=== PATIENT | male | born 1960 | race Hispanic/Latino ===

== ENCOUNTER 2024-03-22 10:19 | Emergency (ER) | payer MEDICAID ==
[~2024-03-22] VITALS: Ht 185.4 cm; Wt 70.8 kg
--- NOTE | 2024-03-22 10:49 | ERN ---
ED Note History of Present Illness Stated Complaint: HEADACHE Chief Complaint: Headache Time Seen by MD: 10:48 Dictation: Patient is a 63-year-old male with a past medical history of hypertension, diabetes type 2, epilepsy who presents to the ED for headache. Patient states his headache started yesterday morning upon wakening. Patient denies any injuries or falls. Patient denies any chest pain, vomiting, or dizziness. Patient admits cough, shortness of breath, congestion, runny nose, fevers, chills, weakness, nausea, generalized weakness. Review of System Dictation Constitutional-no chills, weight loss/gain, fever. Positive for fever, chills. Eyes-no injury, pain, redness and discharge ENT-no injury, pain, swelling. Runny nose, congestion Cardiovascular no chest pain, palpitations, edema Respiratory no wheezing. Positive for shortness of breath and cough Abdomen/GI-no abdominal pain, diarrhea, constipation, vomiting. Positive for nausea Back no injury and pain Genitourinary no injury, bleeding and discharge Musculoskeletal/extremities no injury, deformity. Ambulates with cane. Skin no rash, discoloration Neuro-no numbness, tingling, tremors. Positive for tension headache, generalized weakness. Hx of epileptic seizures. Psych-no suicidal ideation, homicidal ideation, hallucinations, depression, anxiety, memory loss Initial Vital Sign VS Vital Signs Date Time Temp Pulse Resp B/P (MAP) Pulse Ox O2 Delivery O2 Flow Rate FiO2 03/22/24 11:47 98.2 60 20 176/85 100 Room Air 0 03/22/24 12:47 21 Physical Exam Dictation VITAL SIGNS: Reviewed. GENERAL APPEARANCE: Alert, oriented x3, no acute distress, obese. HEAD AND FACE: Non-traumatic. EYES: PERRL, pink conjunctivas, eyelid no trauma, anterior chamber clear. EARS: Pinnas intact and no signs of trauma or erythema. Ear canals clear and no discharge. TMs no erythema. NOSE: No discharge, no bleeding. OROPHARYNX: Mouth normal, teeth no caries, tongue pink. Pharynx clear, no erythema. Tonsils no exudates, no abscesses noted. Mucous membrane moist. NECK: Supple, non-tender, no thyromegaly, no masses, no JVD, no bruits. BREAST: Deferred. CHEST: No tenderness, no crepitus, no paradoxical movement, no retractions. LUNGS: Clear, well-ventilated, symmetric, no rales, no wheezing, no rhonchi, no stridor, good breath sounds bilaterally. HEART: Regular rate, regular rhythm, no murmur, no gallops. VASCULAR: No peripheral edema. ABDOMEN: Soft, positive bowel sounds, nondistended, no guarding, nontender, no rebound, no masses no hepatomegaly, no splenomegaly, no Lopez's sign, no hernias. RECTAL: Deferred. GENITAL: Deferred. NEUROLOGICAL: Normal speech, gross motor function intact, gross sensory function intact. MUSCULOSKELETAL: Neck nontender, full range of motion, back nontender, full range of motion. EXTREMITIES: Nontender, full range of motion. SKIN: Color pink, dry, no turgor, no rash, no lacerations, no abrasions, no contusions. LYMPHATICS: Deferred. Results (Laboratory/Radiology) Laboratory/Radiology Laboratory Tests Test 03/22/24 11:33 03/22/24 11:53 03/22/24 14:20 White Blood Count 7.4 K/uL (4.8-10.8) Red Blood Count 3.52 MIL/uL (4.50-6.20) L Hemoglobin 10.1 g/dL (14.0-18.0) L Hematocrit 31.6 % (42-54) L Mean Corpuscular Volume 89.8 fL (79-99) Mean Corpuscular Hemoglobin 28.7 pg (27.0-33.0) Mean Corpuscular Hemoglobin Concent 32.0 g/dL (32.0-36.0) Red Cell Distribution Width 15.4 % (11.0-15.5) Platelet Count 149 K/uL (130-400) Mean Platelet Volume 13.4 fL (7.5-10.5) H Immature Granulocyte % (Auto) 0.1 % (0-1) Neutrophils (%) (Auto) 83.4 % (40.0-77.0) H Lymphocytes (%) (Auto) 8.0 % (21.0-51.0) L Monocytes (%) (Auto) 7.2 % (3.0-13.0) Eosinophils (%) (Auto) 0.9 % (0.0-8.0) Basophils (%) (Auto) 0.4 % (0.0-5.0) Neutrophils # (Auto) 6.2 K/uL (1.8-7.7) Lymphocytes # (Auto) 0.6 K/uL (1.0-4.8) L Monocytes # (Auto) 0.5 K/uL (0.1-1.0) Eosinophils # (Auto) 0.07 K/uL (0.00-0.70) Basophils # (Auto) 0.03 K/uL (0.00-0.20) Absolute Immature Granulocyte (auto 0.01 K/uL (0-1) Nucleated Red Blood Cells 0.0 % (0.0-0.19) White Cell Morphology Comment See comments Sodium Level 137 mmol/L (136-145) Potassium Level 3.5 mmol/L (3.5-5.1) Chloride Level 104 mmol/L (101-111) Carbon Dioxide Level 29 mmol/L (21-32) Blood Urea Nitrogen 21 mg/dL (7-18) H Creatinine 1.2 mg/dL (0.5-1.3) Glomerular Filtration Rate Calc 68 mL/min (>90) Random Glucose 106 mg/dL (70-105) H Total Calcium 9.6 mg/dL (8.5-10.1) Magnesium Level 1.80 mg/dL (1.80-2.40) Troponin I High Sensitivity 20 ng/L (4-75) Influenza Type A Antigen Negative For Type A Influenza Type B Antigen Negative For Type B SARS-CoV-2 Antigen (Rapid) PRESUMPTIVE NEGATIVE Urine Color LIGHT-YELLOW (YELLOW) Urine Appearance CLEAR (CLEAR) Urine pH 6.5 (5.0-8.0) Urine Specific Horton 1.016 (1.001-1.031) Urine Protein NEGATIVE mg/dL (NEGATIVE) Urine Glucose (UA) NEGATIVE mg/dL (NEGATIVE) Urine Ketones NEGATIVE mg/dL (NEGATIVE) Urine Occult Blood NEGATIVE (NEGATIVE) Urine Nitrate NEGATIVE (NEGATIVE) Urine Bilirubin NEGATIVE mg/dL (NEGATIVE) Urine Urobilinogen 0.2 mg/dL (0.2-1.0) Urine Leukocyte Esterase NEGATIVE Kayy/uL Urine RBC 2-5 /HPF (0-1) H Urine WBC 0-1 /HPF (0-1) Urine Squamous Epithelial Cells RARE /HPF (0-2) Urine Other Crystals (Auto) 1 /HPF (None Seen) Urine Bacteria None /HPF (None Seen) Labs Reviewed?: Yes EKG Comment: EKG obtained 03/22/24 at 11:26:17 Sinus rhythm HR [address] Depressions/elevations X-RAY Comment: Exam Type: CHEST 1VW Clinical Information: SOB Comparison: None Findings: There is apical capping on the left side, significantly asymmetric when compared to the right and there is destruction of the proximal aspect of the left second rib. These findings are suggestive of a Pancoast tumor. Consider further evaluation with CT of the chest without contrast. The rest of the lung mckeon are clear and the heart is normal in size. IMPRESSION: Suspected left apical tumor. Consider CT. CT Scan Comment: Exam Type: CT HEAD/BRAIN W/O CONTRAST Clinical Information: Headache, hx of epilepsy Comparison: None CT Dose Index (CTDI): 57.33 mGy Dose Length Product (DLP): 956.79 total mGy-cm Findings: The examination shows atrophy. There is low attenuation throughout the periventricular white matter locations, consistent with chronic small vessel ischemic changes. No acute intra- or extra-axial fluid collections are seen. There is no evidence of acute or chronic hemorrhage. There is no mass effect or shift of midline structures. There are no areas to suggest acute infarct. The skull windows show no significant abnormalities. IMPRESSION: 1. ATROPHY AND CHRONIC SMALL VESSEL ISCHEMIC CHANGES. This study was performed using dose reduction techniques to include automated exposure control and/or adjustment of the mA and/or kV according to patient size. ED Course ED Course Orders Procedure Category Date Status Time Cbc With Differential LAB 03/22/24 Complete 10:42 Chest 1vw RAD 03/22/24 Resulted 10:42 12 Lead Ekg Tracing- EKG 03/22/24 Complete Technical 10:42 Magnesium LAB 03/22/24 Complete 10:42 Troponin I High LAB 03/22/24 Complete Sensitivity 10:42 Urinalysis Profile LAB 03/22/24 Complete 10:42 Basic Metabolic Panel LAB 03/22/24 Complete 10:42 Covid19 (Sars Antigen LAB 03/22/24 Complete Rapid) 10:42 Influenza Type A & B, LAB 03/22/24 Complete Rapid 10:42 Ct Head/Brain W/O CT 03/22/24 Resulted Contrast 10:42 Ct Chest W/O Contrast CT 03/22/24 Resulted 12:01 Vital Signs Date Time Temp Pulse Resp B/P (MAP) Pulse Ox O2 Delivery O2 Flow Rate FiO2 03/22/24 14:40 98.2 57 18 149/85 100 Room Air* 0 21 03/22/24 13:30 98.2 57 18 147/87 100 Room Air* 0 21 03/22/24 12:47 57 18 159/92 100 Room Air* 0 21 03/22/24 11:47 98.2 60 20 176/85 100 Room Air 0 HEART Score Response (Comments) Value History: Low suspicion (0) 0 EKG: Normal 0 Age: 45-65yrs (+1) 1 Risk Factors: No known risk factors (0) 0 Initial Troponin: Normal limit (0) 0 HEART Score Risk: Low Risk for MACE (1-3) Total 1 Medical Decision Making [facility] INITIAL IMPRESSION Initial history and physical concerning for Contributing medical problems: I have reviewed the triage nursing notes and vital signs. Initial plan: Laboratory evaluation, EKG, CXR, CT chest, UA DATA REVIEW I have reviewed additional NN, repeat VS, and monitoring where indicated. Heart rate, blood pressure, and O2 saturation are acceptable. Anguiano diagnostic results: Other independent historian: Review of external data: ED COURSE Interventions: Reassessment: DISPOSITION Final diagnostic impression: I discussed my findings, clinical impression and treatment recommendations with the patient. My final plan for disposition was made based upon -mild risk of complications and potential morbidity of the patient's condition. -Discussion with the patient regarding management options. [diposition] patient will be discharged home I also advised him findings on CT and strongly encouraged him to follow up with PCP. DX & DISP Disposition: Discharge Departure Impression: Primary Impression: Abnormal x-ray Additional Impression: Dehydration Condition: Stable Additional Instructions: FOLLOW-UP WITH PRIMARY CARE PROVIDER IN 1 TO 2 DAYS. TAKE MEDICATIONS DIRECTED HERE IN THE EMERGENCY ROOM. OKAY TO CONTINUE HOME MEDICATIONS UNLESS OTHERWISE DISCUSSED DURING YOUR VISIT IN THE EMERGENCY ROOM TODAY. RETURN TO YOUR NEAREST EMERGENCY ROOM IF SYMPTOMS WORSEN OR IF THERE IS NO IMPROVEMENT. CALL 911 IF YOU NEED IMMEDIATE ASSISTANCE. TAKE TYLENOL [id number] NEEDED AND IF NO CONTRAINDICATIONS ARE PRESENT. INCREASE ORAL HYDRATION. A WOUND CULTURE OR URINE CULTURE WAS ORDERED HERE IN THE EMERGENCY ROOM DEPARTMENT PLEASE FOLLOW-UP WITH PRIMARY CARE PROVIDER AND ADVISE THEM TO GET REPEAT PORTS FROM OUR FACILITY. IF YOU HAD ANY DELMY WRAP/SPLINTS THAT WERE APPLIED HERE, PLEASE DO NOT REMOVE THEM UNTIL YOU SEE YOUR PRIMARY CARE OR SPECIALTY. Referrals: Referrals: MILO FABIAN MD Time of Disposition: 15:17 I have reviewed the case I have examined patient HANANE ERVIN MD Mar 22, 2024 10:49 AMADEO ANGEL MD Mar 22, 2024 15:16
--- NOTE | 2024-03-22 11:16 | HMCIMG ---
Exam Type: CT HEAD/BRAIN W/O CONTRAST Clinical Information: Headache, hx of epilepsy Comparison: None CT Dose Index (CTDI): 57.33 mGy Dose Length Product (DLP): 956.79 total mGy-cm Findings: The examination shows atrophy. There is low attenuation throughout the periventricular white matter locations, consistent with chronic small vessel ischemic changes. No acute intra- or extra-axial fluid collections are seen. There is no evidence of acute or chronic hemorrhage. There is no mass effect or shift of midline structures. There are no areas to suggest acute infarct. The skull windows show no significant abnormalities. IMPRESSION: 1. ATROPHY AND CHRONIC SMALL VESSEL ISCHEMIC CHANGES. This study was performed using dose reduction techniques to include automated exposure control and/or adjustment of the mA and/or kV according to patient size.
[2024-03-22 11:45] LABS: BASOPHILS # (AUTO) 0.03 K/uL (0.00-0.20); BASOPHILS % (AUTO) 0.4 % (0.0-5.0); EOSINOPHILS # (AUTO) 0.07 K/uL (0.00-0.70); EOSINOPHILS % (AUTO) 0.9 % (0.0-8.0); HEMATOCRIT 31.6 % (42-54); IMMATURE GRANULOCYTE ABSOLUTE 0.01 K/uL (0-1); LYMPHOCYTES # (AUTO) 0.6 K/uL (1.0-4.8); MEAN CORPUSCULAR HEMOGLOBIN 28.7 pg (27.0-33.0); MEAN CORPUSCULAR VOLUME 89.8 fL (79-99); MONOCYTES # (AUTO) 0.5 K/uL (0.1-1.0); MONOCYTES % (AUTO) 7.2 % (3.0-13.0); NEUTROPHILS # (AUTO) 6.2 K/uL (1.8-7.7); NEUTROPHILS % (AUTO) 83.4 % (40.0-77.0); PLATELET COUNT (AUTO) 149 K/uL (130-400); RED BLOOD CELL COUNT(AUTO) 3.52 MIL/uL (4.50-6.20); RED CELL DISTRIBUTION WIDTH 15.4 % (11.0-15.5); WHITE BLOOD COUNT (AUTO) 7.4 K/uL (4.8-10.8)
--- NOTE | 2024-03-22 11:48 | HMCIMG ---
Exam Type: CHEST 1VW Clinical Information: SOB Comparison: None Findings: There is apical capping on the left side, significantly asymmetric when compared to the right and there is destruction of the proximal aspect of the left second rib. These findings are suggestive of a Pancoast tumor. Consider further evaluation with CT of the chest without contrast. The rest of the lung mckeon are clear and the heart is normal in size. IMPRESSION: Suspected left apical tumor. Consider CT.
[2024-03-22 11:54] LABS: CREATININE 1.2 mg/dL (0.5-1.3); MAGNESIUM 1.8 mg/dL (1.80-2.40); POTASSIUM 3.5 mmol/L (3.5-5.1)
[2024-03-22 12:36] LABS: INFLUENZA TYPE A Negative For Type A (NEGATIVE); INFLUENZA TYPE B Negative For Type B (NEGATIVE)
[2024-03-22 12:42] LABS: COVID19 (SARS ANTIGEN RAPID) PRESUMPTIVE NEGATIVE (NEGATIVE)
--- NOTE | 2024-03-22 14:24 | HMCIMG ---
CT NONCONTRAST CHEST Comparison Study: none History: Apical tumor found on CXR, SOB Technique: Helical CT of the chest without IV contrast at 5 mm collimation. Coronal and sagittal reformations also done. CT Dose Index (CTDI): 2.38 mGy Dose Length Product (DLP): 94.8 total mGy-cm Findings: The airway is intact. The trachea and major bronchi are unremarkable. Left apical posterior aspect 3.3 x 2.1 cm spiculated lesion is seen. The lesion involves the second, third and fourth posterior left-sided ribs, with partial destruction of the 3 ribs consistent with direct invasion or adjacent metastatic involvement. The rest of the lung parenchyma is free of masses but there is evidence of centrilobular emphysema. No pleural effusions are identified. There is no pneumothorax. There is no evidence of pneumomediastinum. The nonenhanced exam of the shanell and mediastinum is unremarkable. No evidence of hilar enlargement is seen. The aorta shows no aneurysmal dilatation or significant atheromatous calcification. No significant brachiocephalic vascular abnormalities are seen. The heart is unremarkable. It is not enlarged. No significant coronary arterial calcifications are seen. There is no pericardial effusion. The rib cage appears unremarkable. The soft tissues of the chest wall are unremarkable. The dorsal spine shows no significant abnormalities. IMPRESSION: Left apical posterior aspect 3.3 x 2.1 cm spiculated lesion is seen. The lesion involves the second, third and fourth posterior left-sided ribs, with partial destruction of the 3 ribs consistent with direct invasion or adjacent metastatic involvement. This study was performed using dose reduction techniques to include automated exposure control and/or adjustment of the mA and/or kV according to patient size.
[2024-03-22 14:37] LABS: APPEARANCE,URINE CLEAR (CLEAR); BILIRUBIN,URINE NEGATIVE (NEGATIVE); COLOR,URINE LIGHT-YELLOW (YELLOW); GLUCOSE, URINE (UA) NEGATIVE (NEGATIVE); KETONES,URINE NEGATIVE (NEGATIVE); LEUKOCYTE ESTERASE ,URINE NEGATIVE Leu/uL (NEGATIVE); NITRATE,URINE NEGATIVE (NEGATIVE); OCCULT BLOOD,URINE NEGATIVE (NEGATIVE); PH,URINE 6.5 (5.0-8.0); PROTEIN,URINE NEGATIVE (NEGATIVE); UROBILINOGEN,URINE 0.2 mg/dL (0.2-1.0)
[2024-03-22 14:40] VITALS: BP 149/85; PULSE 57; RESP 18; TEMP 98.2; O2SAT 100
--- NOTE | 2024-03-22 14:40 | NUR ---
MULTIPLE ATTEMPTS WERE MADE TO CONTACT PTS MOTHER ON PTS REQUEST BUT PT IS UNABLE TO RECALL PHONE NUMBER. NUMBER ON FILE WAS CONTACTED AND SPECTRA LINK SYBIL TO PT BUT REPORTS THAT IS NOT CORRECT CONTACT. MULTIPLE OTHER ATTEMPTS WERE MADE TO INFER CONTACT NUMBER BUT PT IS UNABLE TO RECALL CORRECT SEQUENCE OF NUMBERS. PT WAS INFORMED WE CANNOT CALL HER IFN WE DO NOT HAVE HER CONTACT INFORMATION AND PT IS UNABLE TO PROIDE THE CONTACT INFORMATION OF ANYONE WHO CAN CONTACT HER. PT APPEARS TO UNDERSTAND AT THIS TIME
[2024-03-22 14:43] LABS: ADD UA MICROSCOPIC YES
[2024-03-22 14:46] LABS: SQUAMOUS EPITHELIAL CELL,UR RARE /HPF (0-2); UNCLASSIFIED CRYSTAL 1 /HPF (None Seen); WBC,URINE 0-1 /HPF (0-1)
--- NOTE | 2024-03-22 14:48 | EKG ---
[facility] Test Date: 2024-03-22 Test Time: 11:26:17 Pat Name: DAVE NAJERA Department: ED Room: Gender: Hunter Trapper: 07 : 1960 Requested By: HANANE ERVIN Order Number: [id number] Reading MD: Joey Soni Measurements Intervals Echo Rate: 61 P: 73 [place]: 204 QRS: 65 QRSD: 106 T: 63 QT: 443 QTc: 447 Interpretive Statements Sinus rhythm Probable left ventricular hypertrophy No previous ECG available for comparison Electronically Signed On 03-22-2024 22:09:31 [employer] by Joey Soni Please click the below link to view image of tracing.
== END 2024-03-22 15:41 | disposition home or self-care (01) ==
LOC: EDH 10:19
DX: E86.0 Dehydration (principal); R51.9 Headache, unspecified; Z20.822 Contact with and (suspected) exposure to COVID-19
CPT/HCPCS: 36415; 70450; 71045; 71250; 80048; 81001; 83735; 84484; 85025; 87426; 87804; 93005; 99285